=== PATIENT | female | born 1980 | race Caucasian/White ===

== ENCOUNTER 2019-09-06 11:56 | Emergency (ER) | payer OTHER, SELFPAY ==
[2019-09-06 12:05] VITALS: BP 102/58; PULSE 68; RESP 16; TEMP 37.1; O2SAT 100
--- NOTE | 2019-09-06 12:21 | ED.URI ---
HPI - URI/Sore Throat General Chief Complaint: Upper Respiratory Infection Stated Complaint: Head congestion/cough Time Seen by Provider: 09/06/19 12:21 Source: patient and RN notes reviewed Mode of arrival: ambulatory Limitations: no limitations History of Present Illness HPI Narrative: 39-year-old female who presents to [facility] care with 2 day history of nasal congesiton with yellow nasal drainage, right ear pressure with popping sensation,sore throat. loose cough. Patient states that she did have a fever last night of 101F and has been taking OTC Tylenol and Ibuprofen for her pain and fever. Patient states that she has some loose cough but denies any shortness of breath or any wheezing with SAO2 100% on room air. MD elicited complaint: fever, cough, sore throat, rhinorrhea, nasal congestion and other (ear pressure) Pertinent past history: other (tobacco abuse) Onset (ago): day(s) (2) Consistency: constant Severity: moderate Pain scale (0-10): 5 Description of mucous: yellow Exacerbating factors: swallowing Relieving factors: nothing Associated symptoms: fever, chills, rhinorrhea, nasal congestion, sore throat, cough and ear pain Treatments prior to arrival: acetaminophen and ibuprofen Related Data Allergies Allergy/AdvReac Type Severity Reaction Status Date / Time No Known Allergies Allergy Unverified 03/20/16 12:11 Review of Systems Review of Systems: Narrative: CONSTITUTIONAL: positive fever, chills, or sweats. EYES: Denies visual changes, redness, or discharge. ENT: Positive rhinorrhea, congestion, sore throat,right otalgia. CARDIOVASCULAR: Denies chest pain, palpitations, or edema. RESPIRATORY: positive cough denies dyspnea. GASTROINTESTINAL: Denies abdominal pain, nausea, vomiting, or diarrhea. GENITOURINARY: Denies dysuria or hematuria. SKIN: Denies rash or itching. MUSCULOSKELETAL: Denies back pain, joint pain, or myalgia. NEUROLOGIC: Denies headache, numbness, or weakness. PSYCHIATRIC: Denies anxiety or depression. All systems reviewed & are unremarkable except as noted in HPI and below PMFSH Past Medical History Medical History (Updated 09/08/19 @ 15:02 by Johanne Rosas NP) Ovarian cyst Surgical History Surgical History (Updated 09/06/19 @ 12:33 by Johanne Rosas NP) Tubal ligation status Family History Family History Other Diabetes mellitus Family history of malignant neoplasm Social History Social History (Updated 09/08/19 @ 15:00 by Johanne Rosas NP) Smoking packs per day: 0.5 Smoking cigarettes per day: 10.0 Years smoked: 22 Smoking pack-years: 11.00 Smoking status: Current every day smoker Alcohol intake: never Living arrangements: with family Gender identity (if verbalized by the patient): Female Comments At time of signature agree with nursing documentation of past medical, surgical and social history. There is no relevant family history pertinent to presenting complaint. Exam Narrative: Exam Narrative: GENERAL: Well-appearing, well-nourished, and in no acute distress. HEAD: Normocephalic, atraumatic. EYES: PERRLA and EOMI. ENT: Nares red with clear rhinorrhea no epistaxis. Mucous membranes moist. TMs normal with good light reflex, throat red with no lesions or exudate,tonsils red with mild enlargement NECK: Supple, Lymphadenopathy CHEST: Clear to auscultation. No respiratory distress. Cough denies shortness of breath SaO2 100% on room air HEART: Regular rate and rhythm. No murmur heard. Normal peripheral pulses. ABDOMEN: Soft, nontender, nondistended, normal active bowel sounds. EXTREMITIES: Normal range of motion. No edema. SKIN: Warm, dry, no rash. NEURO: No focal deficits. Alert and oriented x3. Course Vital Signs Vital signs: Vital Signs Temperature 37.1 C 09/06/19 12:05 Pulse Rate 68 09/06/19 12:05 Respiratory Rate 16 09/06/19 12:05 Blood Pressure 102/58 L 09/06/19 12:05 Pul
== END 2019-09-06 12:45 | disposition home or self-care (01) ==
PROVIDERS: Emergency Provider Registered Nurse
DX: J03.90 Acute tonsillitis, unspecified (principal); J06.9 Acute upper respiratory infection, unspecified
CPT/HCPCS: 87081; 87804; 87880; 99203; G0463